=== PATIENT | male | born 1975 | race American Indian/Alaskan Native ===

== ENCOUNTER 2016-03-20 11:21 | Emergency (ER) | payer SELFPAY ==
--- NOTE | 2016-03-20 20:06 | Emergency Department Report ---
Minor Respiratory - HPI Chief Complaint: Upper Respiratory Infection Stated Complaint: CHEST PAIN,COUGH Time Seen by Provider: 03/20/16 19:20 Duration: 6 weeks Pain Location: Nose Severity: severe Minor Respiratory: Yes Rhinorrhea, Yes Able to Tolerate Fluids, Yes Ear Pain, Yes Cough, Yes Sick Contacts, Yes Chest Pain, Yes Fever, No Sore Throat, No Hemoptysis, No Shortness of Breath Other History: Patient reports chest pain with a cough, nasal congestion and fever that started 6 weeks ago. Patient reports he has taken multiple over-the- counter medication, however to no avail ED Review of Systems ROS: Stated complaint: CHEST PAIN,COUGH Other details as noted in HPI Constitutional: fever. denies: chills, diaphoresis, malaise, weakness Eyes: denies: eye pain, eye discharge, vision change ENT: ear pain, congestion (nasal). denies: throat pain, dental pain, hearing loss, epistaxis Respiratory: cough. denies: orthopnea, shortness of breath, SOB with exertion, SOB at rest, stridor, wheezing Cardiovascular: chest pain (with coughing). denies: palpitations, dyspnea on exertion, orthopnea, edema, syncope, paroxysmal nocturnal dyspnea Skin: denies: rash, lesions, change in color, change in hair/nails, pruritus ED Past Medical Hx - Past Medical History Previous Medical History?: No - Surgical History Past Surgical History?: No - Social History Smoking Status: Never Smoker Substance Use Type: None - Medications Home Medications: Home Medications Medication Instructions Recorded Confirmed Last Taken Type Amoxicillin [Amoxicillin TAB] 875 mg PO BID #20 tablet 03/20/16 Unknown Rx Benzonatate [Tessalon Perles] 100 mg PO Q8HR #12 capsule 03/20/16 Unknown Rx Cetirizine HCl [ZyrTEC] 10 mg PO DAILY #30 capsule 03/20/16 Unknown Rx Ibuprofen [Motrin 800 MG tab] 800 mg PO Q8HR PRN #30 tablet 03/20/16 Unknown Rx Minor Respiratory Exam - Exam General: Vital signs noted. No distress. Alert and acting appropriately. HEENT: Yes Moist Mucous Membranes, Yes Rhinorrhea (swelling to nasal turbinates with watery drainage and tenderness to maxillary sinuses), Yes Maxillary Tenderness, No Pharyngeal Erythema, No Pharyngeal Exudates, No Conjuctival Injection, No Frontal Tenderness Ear: Neither TM Bulge, Neither TM Erythema, Neither EAC Pain, Neither EAC Discharge Neck: Yes Supple, No Adenopathy Lungs: Yes Good Air Exchange, No Wheezes, No Ronchi, No Stridor, No Cough, No Labored Respirations, No Retractions, No Use of Accessory Muscles, No Other Abnormal Lung Sounds Heart: Yes Regular, No Murmur Abdomen: Yes Normal Bowel Sounds, No Tenderness, No Peritoneal Signs Skin: No Rash, No Edema Neurologic: Alert and oriented, no deficits. Musculoskeletal: Unremarkable. ED Course Vital Signs 03/20/16 11:30 Temperature 98 F Pulse Rate 93 H Respiratory 20 Rate Blood Pressure 125/80 O2 Sat by Pulse 100 Oximetry ED Medical Decision Making - Lab Data Vital Signs 03/20/16 11:30 Temperature 98 F Pulse Rate 93 H Respiratory 20 Rate Blood Pressure 125/80 O2 Sat by Pulse 100 Oximetry - Medical Decision Making During the Course in ED, all other systems are unremarkable except for documentation mentation HPI. He was sent home with prescriptions for Amoxicillin, Tessalon Perles, Zyrtec and ibuprofen, instructed to follow with selective referrals given at discharge, he verbalize understanding - Differential Diagnosis Sinusitis, Upper respiratory infection, Rhinorrhea Critical care attestation.: If time is entered above; I have spent that time in minutes in the direct care of this critically ill patient, excluding procedure time. ED Disposition Clinical Impression: Sinusitis, acute Qualifiers: Sinusitis location: maxillary Recurrence: non-recurrent Qualified Code(s): J01.00 - Acute maxillary sinusitis, unspecified Disposition: DISCHARGED TO HOME OR SELFCARE Is pt being admited?: No Does the pt Need Aspirin: No Condition: Stable Instructions: Sinusitis (ED) Additional Instructions: Take medication as directed. Drink Plenty of fluids to promote hydration. Follow up with the selective referrals given at discharge Prescriptions: Amoxicillin [Amoxicillin TAB] 875 mg PO BID #20 tablet Ibuprofen [Motrin 800 MG tab] 800 mg PO Q8HR PRN #30 tablet PRN Reason: Pain Benzonatate [Tessalon Perles] 100 mg PO Q8HR #12 capsule Cetirizine HCl [ZyrTEC] 10 mg PO DAILY #30 capsule Referrals: PRIMARY CARE,MD [Primary Care Provider] - 3-5 Days [facility] [Outside] - 3-5 Days Forms: Work/School Release Form(ED) Time of Disposition: 20:12
[2016-03-20 20:33] VITALS: BP 133/91
== END 2016-03-20 20:12 | disposition home or self-care (01) ==
LOC: ED 11:21
DX: J01.00 Acute maxillary sinusitis, unspecified (principal); R07.9 Chest pain, unspecified; H92.09 Otalgia, unspecified ear
CPT/HCPCS: 99282